=== PATIENT | female | born 1980 | race African-American/Black ===

== ENCOUNTER 2021-07-05 01:30 | Inpatient (IN) | payer MEDICAID ==
[~2021-07-05] VITALS: Ht 162.6 cm; Wt 74.4 kg
--- NOTE | 2021-07-05 01:52 | NUR ---
PATIENT BIBRA [address] C/O ABDOMINAL PAIN. PATIENT REQUESTED FOR WATER UPON TRIAGE. PATIENT IS A/O X 4, RR EVEN AND UNLABORED, NO SOB NOTED. PATIENT CONNECTED TO CARDIAC AND POX MONITOR. PT NOTED WITH BED BUGS.
[2021-07-05] MEDS ORDERED: HYDROMORPHONE INJ 2 MG/ML DISP.SYRIN IV ONE (02:00)
[2021-07-05] MEDS ORDERED: ONDANSETRON HCL/PF 4 MG/2 ML VIAL IVP ONE (02:00)
[2021-07-05] MEDS ORDERED: IV NS 0.9% 1,000 ML BAG IV ONE (02:00)
--- NOTE | 2021-07-05 02:25 | NUR ---
IV LINE ESTABLISHED AT RAC 20G, BLOOD DRAWN AND SENT TO LAB
--- NOTE | 2021-07-05 02:25 | NUR ---
IV LINE ESTABLISHED AT RAC 20G, BLOOD DRAWN AND SENT TO LAB
[2021-07-05] MEDS ORDERED: ONDANSETRON HCL/PF 4 MG/2 ML VIAL ONE (02:27)
[2021-07-05] MEDS ORDERED: HYDROMORPHONE 1 MG/1 ML DISP.SYRIN ONE (02:27)
--- NOTE | 2021-07-05 02:44 | NUR ---
ACREAGE REPORTER AT BEDSIDE
--- NOTE | 2021-07-05 02:44 | NUR ---
CABLE FERRY OPERATOR AT BEDSIDE
[2021-07-05 02:49] LABS: EOSINOPHILS % (AUTO) 2.8 % (0.0-6.0); MONOCYTES # (AUTO) 0.7 K/uL (0.1-1.30)
[2021-07-05 03:29] LABS: BASOPHILS # (AUTO) 0.1 K/uL (0.0-0.2); BASOPHILS % (AUTO) 0.8 % (0.0-2.0); LYMPHOCYTES # (AUTO) 2.4 K/uL (0.8-4.8); LYMPHOCYTES % (AUTO) 38.7 % (20.0-44.0); MEAN CORPUSCULAR HGB CONC 31 g/dl (31.0-36.0); MEAN CORPUSCULAR VOLUME 66 fL (82-100); MONOCYTES % (AUTO) 11.2 % (2.0-12.0); NEUTROPHILS # (AUTO) 2.9 K/uL (1.8-8.9); NEUTROPHILS % (AUTO) 46.5 % (43.0-81.0); PLATELET COUNT (AUTO) 454 K/uL (150-450); RED BLOOD CELL COUNT(AUTO) 2.61 MIL/uL (4.0-5.2); WHITE BLOOD COUNT (AUTO) 6.3 K/uL (4.3-11.0)
[2021-07-05 03:34] LABS: CALCIUM, SERUM 7.9 mg/dL (8.5-10.1); POTASSIUM 3.9 mmol/L (3.5-5.1)
[2021-07-05 03:36] LABS: HEMOGLOBIN 5.4 g/dL (11.5-14.8)
[2021-07-05 03:37] LABS: HEMATOCRIT 17 % (33-45)
[2021-07-05 03:47] LABS: ALBUMIN 2.5 g/dL (3.4-5.0); BILIRUBIN,DIRECT 0.1 mg/dL (0.0-0.2); BILIRUBIN,TOTAL 0.2 mg/dL (0.2-1.0); TOTAL PROTEIN, SERUM 6.2 g/dL (6.4-8.2)
[2021-07-05] MEDS ORDERED: LORAZEPAM INJ 2 MG/ML VIAL IV ONE (04:00)
[2021-07-05] MEDS ORDERED: LORAZEPAM INJ 2 MG/ML VIAL ONE (04:07)
--- NOTE | 2021-07-05 04:25 | NUR ---
PT SIGNED CONSENT FOR BLOOD TRANSFUSION, FORM PLACED ON CHART
--- NOTE | 2021-07-05 04:25 | NUR ---
PT SIGNED CONSENT FOR BLOOD TRANSFUSION, FORM PLACED ON CHART
--- NOTE | 2021-07-05 04:29 | NUR ---
covid antigen swab collected and sent to lab
--- NOTE | 2021-07-05 04:29 | NUR ---
covid antigen swab collected and sent to lab
--- NOTE | 2021-07-05 04:31 | NUR ---
[facility]SA SWAB DONE BY [facility] EMT AND SENT TO LAB
--- NOTE | 2021-07-05 04:31 | NUR ---
[facility]SA SWAB DONE BY [facility] EMT AND SENT TO LAB
[2021-07-05 04:59] LABS: OCCULT BLOOD STOOL POSITIVE (NEGATIVE)
[2021-07-05] MEDS ORDERED: ZOLPIDEM TARTRATE 5 MG TABLET PO PRN (07:00)
[2021-07-05] MEDS ORDERED: ONDANSETRON HCL/PF 4 MG/2 ML VIAL IVP PRN (07:00)
[2021-07-05] MEDS ORDERED: MAGNESIUM HYDROXIDE 30 ML UDC PO PRN (07:00)
[2021-07-05] MEDS ORDERED: PANTOPRAZOLE 40 MG VIAL IV SCH (07:00)
[2021-07-05] MEDS ORDERED: ACETAMINOPHEN 325 MG TABLET PO PRN (07:00)
[2021-07-05] MEDS ORDERED: MAG HYDROX/AL HYDROX/SIMETH 30 ML UDC PO PRN (07:00)
--- NOTE | 2021-07-05 08:00 | NUR ---
THE PATIENT IS RECEIVED IN ER BED #6. THE PATIENT IS SLEEPING. EASILY RESPONSIVE TO VERBAL STIMULI. RESPIRATION REGULAR AND UNLABORED. ATTACHED TO THE MONITOR.
--- NOTE | 2021-07-05 08:00 | NUR ---
THE PATIENT IS RECEIVED IN ER BED #6. THE PATIENT IS SLEEPING. EASILY RESPONSIVE TO VERBAL STIMULI. RESPIRATION REGULAR AND UNLABORED. ATTACHED TO THE MONITOR.
[2021-07-05] MEDS ORDERED: PANTOPRAZOLE 40 MG VIAL ONE (08:05)
[2021-07-05] MEDS: IV NS 0.9% 1,000 ML IV PRN (08:21)
--- NOTE | 2021-07-05 10:57 | NUR ---
NO INPATIENT BED AVAILABLE,WAITING ON D/C OR DOWNGRADE PER HOUSE MARY JO ALFREDO
--- NOTE | 2021-07-05 10:57 | NUR ---
NO INPATIENT BED AVAILABLE,WAITING ON D/C OR DOWNGRADE PER HOUSE MARY JO ALFREDO
--- NOTE | 2021-07-05 13:36 | NUR ---
BED WAS GIVEN 308-2
--- NOTE | 2021-07-05 13:36 | NUR ---
BED WAS GIVEN 308-2
--- NOTE | 2021-07-05 13:53 | NUR ---
REPORT GIVEN TO NURSE GRADY FOR DEVENDRA
--- NOTE | 2021-07-05 13:53 | NUR ---
REPORT GIVEN TO NURSE GRADY FOR DEVENDRA
--- NOTE | 2021-07-05 15:00 | NUR ---
TELE ADMISSION NOTE RECEIVED PT FROM ED. PT WITH STABLE VITALS. BP SLIGHTLY ELEVATED, DR. DE LA CRUZ MADE AWARE. ORIENTED PT TO UNIT, STAFF AND CALL LIGHT. ALERT AND ORIENTED X3, SLURRING OF WORDS. BREATHING IS EVEN AND UNLABORED. NO SOB. PT C/O ABDOMEN PAIN 10/05. IV ACCESS RAC#20 PATENT AND INTACT. BELONGINGS PLACED IN PLASTIC BAG. SAFETY MEASURES IN PLACE WITH BED LOW AND LOCKED, SIDE RAILS UP X 2. WILL CONTINUE TO MONITOR PATIENT THROUGHOUT SHIFT.
--- NOTE | 2021-07-05 15:08 | NUR ---
THE PATIENT IS TAKEN TO 308-2 IN STABLE CONDITION AND PER POLICY
--- NOTE | 2021-07-05 15:08 | NUR ---
THE PATIENT IS TAKEN TO 308-2 IN STABLE CONDITION AND PER POLICY
--- NOTE | 2021-07-05 15:30 | NUR ---
[facility] BLOOD TRANSFUSION STARTED INFUSION OF 1PRBC AT 1507. BP ELEVATED, DR. DE LA CRUZ MADE AWARE WITH NEW ORDER OF HYDRALAZINE 25MG PO ONCE; ORDERS READ BACK AND CARRIED OUT. WILL CONTINUE TO MONITOR FOR ADVERSE REACTIONS.
[2021-07-05 16:11] LABS: EOSINOPHILS % (MANUAL) 4 % (0-4); LYMPHOCYTES % (MANUAL) 34 % (16-48); MONOCYTES % (MANUAL) 9 % (0-11.0); NEUTROPHILS % (MANUAL) 53 (42-76)
[2021-07-05 16:47] VITALS: BP 160/95
[2021-07-05 17:02] VITALS: BP 171/100
[2021-07-05 17:47] VITALS: BP 170/110
[2021-07-05] MEDS ORDERED: hydrALAZINE HCL 25 MG TABLET PO ONE (18:00)
--- NOTE | 2021-07-05 18:17 | NUR ---
TELE ADMISSION NOTE RECEIVED PT FROM ED. PT WITH STABLE VITALS. BP SLIGHTLY ELEVATED, DR. DE LA CRUZ MADE AWARE. ORIENTED PT TO UNIT, STAFF AND CALL LIGHT. ALERT AND ORIENTED X3, SLURRING OF WORDS. BREATHING IS EVEN AND UNLABORED. NO SOB. PT C/O ABDOMEN PAIN 10/05. IV ACCESS RAC#20 PATENT AND INTACT. BELONGINGS PLACED IN PLASTIC BAG. SAFETY MEASURES IN PLACE WITH BED LOW AND LOCKED, SIDE RAILS UP X 2. WILL CONTINUE TO MONITOR PATIENT THROUGHOUT SHIFT. Addendum: 07/05/21 at 182 by ANT PACHECO RN ERROR, WRONG TIME Addendum: 07/05/21 at 182 by ANT PACHECO RN ERROR, NOT TELE
--- NOTE | 2021-07-05 18:42 | NUR ---
RN NOTES [facility] CURRENTLY TRANSFUSING AT 130MLS/ HR. NO S/SX OF DISTRESS OR REACTION. PT IS ALERT AND ORIENTED X 3. BP CURRENTLY AT 160/102. WILL CONTINUE TO MONITOR.
--- NOTE | 2021-07-05 19:25 | NUR ---
MS RN NOTE PT BP CONTINUES TO BE ELEVATED AT 171/111 DESPITE ADMINISTRATION OF HYDRALAZINE 25MG PO. INFORMED CHARGE NURSE AND MD WITH NEW ORDER FOR HYDRALAZINE 25MG IV ONCE; ORDERS READ BACK AND CARRIED OUT.
--- NOTE | 2021-07-05 19:25 | NUR ---
MS RN CLOSING NOTE BP SLIGHTLY STILL ELEVATED, DR. DE LA CRUZ MADE AWARE. BREATHING IS EVEN AND UNLABORED. NO SOB. IV ACCESS RAC#20 PATENT AND INTACT. SAFETY MEASURES IN PLACE WITH BED LOW AND LOCKED, SIDE RAILS UP X 2. WILL ENDORSE TO PULPWOOD CUTTER TO MONITOR PATIENT BP.
--- NOTE | 2021-07-05 19:25 | NUR ---
MS RN CLOSING NOTE BP SLIGHTLY STILL ELEVATED, DR. DE LA CRUZ MADE AWARE. BREATHING IS EVEN AND UNLABORED. NO SOB. IV ACCESS RAC#20 PATENT AND INTACT. SAFETY MEASURES IN PLACE WITH BED LOW AND LOCKED, SIDE RAILS UP X 2. WILL ENDORSE TO PRESS FEEDER TO MONITOR PATIENT BP.
[2021-07-05] MEDS ORDERED: hydrALAZINE HCL IV 20 MG VIAL IV ONE (19:30)
--- NOTE | 2021-07-05 19:30 | NUR ---
MS RN OPENING NOTE RECIEVED PT IN BED AWAKE. A/O X3. PT STABLE ON ROOM AIR. NO SOB OR S/S OF RESPIRATORY DISTRESS. IV ACCESS RAC 20 GAUGE RUNNING PRBC. PT STATED NO PAIN OR DISCOMFORT AT THIS TIME. SAFETY PRECAUTIONS MAINTAINED. BED IN LOWEST LOCKED POSITION, HOB ELEVATED, SIDE RAILS UP X2, AND CALL LIGHT AND TABLE WITHIN REACH. WILL CONTINUE WITH PLAN OF CARE.
[2021-07-05 20:00] VITALS: BP 178/118
[2021-07-05] MEDS ORDERED: hydrALAZINE HCL 50 MG TABLET PO ONE (20:30)
[2021-07-05 20:48] VITALS: BP 150/98
[2021-07-05] MEDS: PANTOPRAZOLE 40 MG VIAL IV SCH (21:55)
[2021-07-06] MEDS: IV NS 0.9% 1,000 ML IV PRN (04:31)
--- NOTE | 2021-07-06 06:43 | NUR ---
MS RN OPENING NOTE PT IN BED RESTING, EASILY AROUSABLE. A/O X3. PT STABLE ON ROOM AIR. NO SOB OR S/S OF RESPIRATORY DISTRESS. IV ACCESS RAC 20 GAUGE RUNNING NS @ 75 ML/HR. PT STATED NO PAIN OR DISCOMFORT AT THIS TIME. ALL NEEDS MET AT THIS TIME. SAFETY PRECAUTIONS MAINTAINED AT ALL TIMES. BED IN LOWEST LOCKED POSITION, HOB ELEVATED, SIDE RAILS UP X2, AND CALL LIGHT AND TABLE WITHIN REACH. WILL ENDORSE TO ONCOMING SHIFT FOR DEVENDRA.
--- NOTE | 2021-07-06 07:30 | NUR ---
MS RN OPENING NOTES RECEIVED PATIENT ON BED AWAKE AND A/O X3. ON ROOM AIR TOLERATING WELL. NO SOB NOTED. NOT IN DISTRESS. WITH NO COMPLAINTS OF PAIN OR DISCOMFORT AT THIS TIME. WITH IV ACCESS AT RIGHT AC G20 WITH NS AT 75ML/HR INFUSING WELL. SAFETY MEASURES IN PLACE. CALL LIGHT WITHIN REACH. BED ON LOWEST LOCKED POSITION, SIDE RAILS UP X2. WILL CONTINUE TO MONITOR.
[2021-07-06 08:00] VITALS: BP 167/88
--- NOTE | 2021-07-06 08:00 | NUR ---
MS RN NOTES PATIENT OBSERVED TO HAVE LICE (PARASITES) INFESTATION SEEN ON HER HEAD, BODY AND LINENS. PATIENT REFUSED TO DISCARD HER PERSONAL BLANKETS. REPORTED TO DR. DE LA CRUZ AND ORDERED LICE TREATMENT.
[2021-07-06 08:06] LABS: BASOPHILS # (AUTO) 0.1 K/uL (0.0-0.2); BASOPHILS % (AUTO) 1.1 % (0.0-2.0); EOSINOPHILS % (AUTO) 3.4 % (0.0-6.0); HEMATOCRIT 22 % (33-45); LYMPHOCYTES # (AUTO) 1.7 K/uL (0.8-4.8); LYMPHOCYTES % (AUTO) 28.5 % (20.0-44.0); MEAN CORPUSCULAR HGB CONC 32 g/dl (31.0-36.0); MEAN CORPUSCULAR VOLUME 72 fL (82-100); MONOCYTES # (AUTO) 0.7 K/uL (0.1-1.30); MONOCYTES % (AUTO) 12.1 % (2.0-12.0); NEUTROPHILS # (AUTO) 3.3 K/uL (1.8-8.9); NEUTROPHILS % (AUTO) 54.9 % (43.0-81.0); PLATELET COUNT (AUTO) 408 K/uL (150-450); RED BLOOD CELL COUNT(AUTO) 3.05 MIL/uL (4.0-5.2); WHITE BLOOD COUNT (AUTO) 6.1 K/uL (4.3-11.0)
[2021-07-06 08:27] LABS: CALCIUM, SERUM 8.6 mg/dL (8.5-10.1); CREATININE 0.7 mg/dL (0.6-1.3); MAGNESIUM 1.7 mg/dL (1.8-2.4); PHOSPHORUS 3.3 mg/dL (2.5-4.9); POTASSIUM 3.9 mmol/L (3.5-5.1)
[2021-07-06] MEDS: PANTOPRAZOLE 40 MG VIAL IV SCH ×2 (08:37→20:06)
[2021-07-06] MEDS ORDERED: IVERMECTIN 3 MG TABLET PO ONE (13:00)
[2021-07-06] MEDS ORDERED: PERMETHRIN 5% CRM 60 GM TUBE TP ONE (13:00)
[2021-07-06] MEDS: Magnesium 1GM/D5W 100ML PREMIX 100 ML IV SCH ×2 (13:10→15:21)
[2021-07-06 16:00] VITALS: BP 149/79
--- NOTE | 2021-07-06 18:34 | NUR ---
MS RN CLOSING NOTES PATIENT ON BED AWAKE AND A/O X3. ON ROOM AIR TOLERATING WELL. NO SOB NOTED. NOT IN DISTRESS. WITH NO COMPLAINTS OF PAIN OR DISCOMFORT AT THIS TIME. WITH IV ACCESS AT RIGHT AC G20 WITH NS AT 75ML/HR INFUSING WELL. SAFETY MEASURES IN PLACE. CALL LIGHT WITHIN REACH. BED ON LOWEST LOCKED POSITION, SIDE RAILS UP X2. WILL ENDORSE TO NEXT SHIFT.
--- NOTE | 2021-07-06 19:42 | NUR ---
MS RN OPENING NOTE RECEIVED PT IN BED AWAKE. A/O X3. PT STABLE ON ROOM AIR. NO SOB OR S/S OF RESPIRATORY DISTRESS. IV ACCESS RAC 20 GAUGE RUNNING NS @ 75 ML/HR. PT STATED NO PAIN OR DISCOMFORT AT THIS TIME. SAFETY PRECAUTIONS MAINTAINED. BED IN LOWEST LOCKED POSITION, HOB ELEVATED, SIDE RAILS UP X2, AND CALL LIGHT AND TABLE WITHIN REACH. WILL CONTINUE WITH PLAN OF CARE.
[2021-07-06 20:00] VITALS: BP 150/90
--- NOTE | 2021-07-07 00:03 | NUR ---
RN NOTE PT REFUSING IVF AT THIS TIME. EDUCATED PT ON RISKS AND BENEFITS. PT STILL REFUSED. CHARGE NURSE MADE AWARE. WILL CONTINUE TO MONITOR.
--- NOTE | 2021-07-07 00:03 | NUR ---
RN NOTE PT REFUSING IVF AT THIS TIME. EDUCATED PT ON RISKS AND BENEFITS. PT STILL REFUSED. CHARGE NURSE MADE AWARE. WILL CONTINUE TO MONITOR.
--- NOTE | 2021-07-07 06:32 | NUR ---
MS RN CLOSING NOTE PT IN BED AWAKE. A/O X3. PT STABLE ON ROOM AIR. NO SOB OR S/S OF RESPIRATORY DISTRESS. IV ACCESS RAC 20 GAUGE, STILL REFUSING IVF AT THIS TIME. PT STATED NO PAIN OR DISCOMFORT AT THIS TIME. KEPT NPO AFTER MIDNIGHT PER MD ORDER. CONTACT PRECAUTIONS OBSERVED AT ALL TIMES. ALL NEEDS MET AT THIS TIME. SAFETY PRECAUTIONS MAINTAINED AT ALL TIMES. BED IN LOWEST LOCKED POSITION, HOB ELEVATED, SIDE RAILS UP X2, AND CALL LIGHT AND TABLE WITHIN REACH. WILL ENDORSE TO ONCOMING NURSE FOR DEVENDRA.
--- NOTE | 2021-07-07 07:20 | NUR ---
MS RN OPENING NOTES RECEIVED PT ON BED, AWAKE, VERBALLY RESPONSIVE, NO SIGNS OF ACUTE DISTRESS NOTED. ON ROOM AIR, NO SOB, BREATHING EVEN AND UNLABORED. IV ACCESS ON RAC #20 G INTACT AND PATENT, REFUSES TO BE CONNECTED TO IVF. REMAINS ON NPO. NO C/O PAIN OR DISCOMFORT AT THIS TIME. ISOLATION PRECAUTIONS OBSERVED. SAFETY MEASURES IN PLACE. BED LOCKED AND ON LOWEST POSITION, SR UP X2, CALL LIGHT PLACED WITHIN EASY REACH. WILL CONTINUE TO MONITOR.
[2021-07-07 08:00] VITALS: BP 100/50
[2021-07-07] MEDS: PANTOPRAZOLE 40 MG VIAL IV SCH ×2 (08:13→21:16)
[2021-07-07 08:38] LABS: BASOPHILS # (AUTO) 0.1 K/uL (0.0-0.2); BASOPHILS % (AUTO) 1.2 % (0.0-2.0); EOSINOPHILS % (AUTO) 3.8 % (0.0-6.0); HEMATOCRIT 23 % (33-45); LYMPHOCYTES # (AUTO) 1.9 K/uL (0.8-4.8); LYMPHOCYTES % (AUTO) 32.5 % (20.0-44.0); MEAN CORPUSCULAR HGB CONC 31 g/dl (31.0-36.0); MEAN CORPUSCULAR VOLUME 72 fL (82-100); MONOCYTES # (AUTO) 0.8 K/uL (0.1-1.30); MONOCYTES % (AUTO) 12.6 % (2.0-12.0); NEUTROPHILS % (AUTO) 49.9 % (43.0-81.0); PLATELET COUNT (AUTO) 416 K/uL (150-450); RED BLOOD CELL COUNT(AUTO) 3.14 MIL/uL (4.0-5.2)
[2021-07-07 09:26] LABS: CALCIUM, SERUM 7.4 mg/dL (8.5-10.1); CREATININE 0.7 mg/dL (0.6-1.3); MAGNESIUM 1.9 mg/dL (1.8-2.4); PHOSPHORUS 3.4 mg/dL (2.5-4.9); POTASSIUM 3.7 mmol/L (3.5-5.1)
[2021-07-07] MEDS ORDERED: OLANZAPINE 5 MG TABLET PO PRN (09:30)
[2021-07-07] MEDS ORDERED: LORAZEPAM 1 MG TABLET PO PRN (09:30)
[2021-07-07 16:00] VITALS: BP 146/81
--- NOTE | 2021-07-07 18:22 | NUR ---
dr. Hernandez called and stated to keep pt npo from midnight, continue to monitor and inform him for any active bleeding.
--- NOTE | 2021-07-07 18:22 | NUR ---
dr. Hernandez called and stated to keep pt npo from midnight, continue to monitor and inform him for any active bleeding.
--- NOTE | 2021-07-07 18:58 | NUR ---
MS RN CLOSING NOTES PATIENT ON BED, AWAKE, VERBALLY RESPONSIVE, NO SIGNS OF ACUTE DISTRESS NOTED. REMAINS ON ROOM AIR, TOLERATING WELL, NO SOB, BREATHING EVEN AND UNLABORED. IV ACCESS ON RAC #20 G INTACT AND PATENT. NO C/O PAIN OR DISCOMFORT AT THIS TIME. ABLE TO TOLERATE CLEAR LIQUID DIET FOR LUNCH AND DINNER. WILL BE NPO AFTER MIDNIGHT PER DR. GUAJARDO'S INSTRUCTIONS. ISOLATION PRECAUTIONS OBSERVED. SAFETY MEASURES IN PLACE. BED LOCKED AND ON LOWEST POSITION, SR UP X2, CALL LIGHT PLACED WITHIN EASY REACH. WILL ENDORSE TO NEXT SHIFT.
--- NOTE | 2021-07-07 19:40 | NUR ---
MS RN OPENING NOTE RECEIVED PT IN BED AWAKE. A/O X3. PT STABLE ON ROOM AIR. NO SOB OR S/S OF RESPIRATORY DISTRESS. IV ACCESS RAC 20 GAUGE, PATIENT REFUSES IVF DESPITE OF RISKS AND BENEFITS EXPLANATIONS. PT STATED NO PAIN OR DISCOMFORT AT THIS TIME. SAFETY PRECAUTIONS MAINTAINED. BED IN LOWEST LOCKED POSITION, HOB ELEVATED, SIDE RAILS UP X2, AND CALL LIGHT AND TABLE WITHIN REACH. WILL CONTINUE WITH PLAN OF CARE.
[2021-07-07 19:55] VITALS: BP 150/77
[2021-07-07 20:00] VITALS: BP 150/77
--- NOTE | 2021-07-07 21:00 | NUR ---
Patient is adamantly refusing to be NPO despite multiple conversations about risks and benefits. and Dr. Hernandez not responding about when EGD will be for sure. Patient is also refusing IV fluids. Addendum: 07/09/21 at 0231 by AHSAN GUZMAN RN date error 07/08/21
--- NOTE | 2021-07-08 06:52 | NUR ---
MS RN CLOSING NOTES PATIENT RESTING IN BED AT THIS TIME. A/OX3. ABLE TO MAKE NEEDS KNOWN. ON ROOM AIR, TOLERATED WELL, BREATHING EVEN AND UNLABORED. IV ACCESS ON RAC G #20 INTACT/PATENT. PATIENT REFUSED TO HAVE IVF. ALL NEEDS AND CARE ATTENDED WELL. PATIENT IS ON ISOLATION FOR LICE. SAFETY PRECAUTIONS IN PLACED. BED LOCKED AND AT LOWEST POSITION. SIDE-RAILS UP X2 AND CALL LIGHT WITHIN REACH. WILL ENDORSE DEVENDRA TO ONCOMING NURSE.
[2021-07-08 08:00] VITALS: BP 153/72
[2021-07-08] MEDS: PANTOPRAZOLE 40 MG VIAL IV SCH ×3 (08:58→21:37)
[2021-07-08 09:13] LABS: CALCIUM, SERUM 7.8 mg/dL (8.5-10.1); CREATININE 0.8 mg/dL (0.6-1.3); MAGNESIUM 1.7 mg/dL (1.8-2.4); PHOSPHORUS 3.6 mg/dL (2.5-4.9); POTASSIUM 3.7 mmol/L (3.5-5.1)
--- NOTE | 2021-07-08 10:00 | NUR ---
m/s event producer: notes lab still pending. f/u made to lab, spoke to esdras and informed me that he is still running the cbc.
--- NOTE | 2021-07-08 10:00 | NUR ---
m/s front desk agent: notes lab still pending. f/u made to lab, spoke to esdras and informed me that he is still running the cbc.
[2021-07-08 10:04] LABS: BASOPHILS % (AUTO) 0.8 % (0.0-2.0); EOSINOPHILS % (AUTO) 4.1 % (0.0-6.0); HEMATOCRIT 22 % (33-45); LYMPHOCYTES % (AUTO) 33.6 % (20.0-44.0); MEAN CORPUSCULAR HGB CONC 31 g/dl (31.0-36.0); MEAN CORPUSCULAR VOLUME 72 fL (82-100); MONOCYTES # (AUTO) 0.8 K/uL (0.1-1.30); MONOCYTES % (AUTO) 13.1 % (2.0-12.0); NEUTROPHILS # (AUTO) 2.8 K/uL (1.8-8.9); NEUTROPHILS % (AUTO) 48.4 % (43.0-81.0); PLATELET COUNT (AUTO) 410 K/uL (150-450); RED BLOOD CELL COUNT(AUTO) 3.05 MIL/uL (4.0-5.2); WHITE BLOOD COUNT (AUTO) 5.8 K/uL (4.3-11.0)
[2021-07-08 10:07] LABS: HEMOGLOBIN 6.8 g/dL (11.5-14.8)
--- NOTE | 2021-07-08 10:08 | NUR ---
m/s medicare contact specialist: rocky dewitt ([employer] and blocker aid labor) called and informed me re: hgb/hct results: . left message to dr. gates (gi). no active bleeding noted since shift starts. instructed to call for assistance. will continue to monitor.
--- NOTE | 2021-07-08 10:08 | NUR ---
m/s snow groomer: rocky dewitt (slab lifting supervisor) called and informed me re: hgb/hct results: . left message to dr. gates (gi). no active bleeding noted since shift starts. instructed to call for assistance. will continue to monitor.
--- NOTE | 2021-07-08 10:20 | NUR ---
m/s strategy analyst: notes dr. gates called back with order to get consent for egd and keep pt npo. orders read back and carried out. updated plan of care to pt, but pt refusing the procedure and refused to signs the consents despite teaching provided, stating, "i don't want the procedure of any kind, talk to my apple picker, i just want my staff and leave. dr. gates made aware. will continue to monitor.
--- NOTE | 2021-07-08 10:20 | NUR ---
m/s cigar wrapper: notes dr. gates called back with order to get consent for egd and keep pt npo. orders read back and carried out. updated plan of care to pt, but pt refusing the procedure and refused to signs the consents despite teaching provided, stating, "i don't want the procedure of any kind, talk to my director of web marketing, i just want my staff and leave. dr. gates made aware. will continue to monitor.
--- NOTE | 2021-07-08 12:00 | NUR ---
m/s conference interpreter: md visit seen by dr. peters at this time and updated plan of care. pt only agrees for egd if she eats something now. pt threatening to leave if she can't eat. md aware. f/u made to dr. gates (gi), left message to md. will continue to monitor.
--- NOTE | 2021-07-08 12:00 | NUR ---
m/s sandblast or shotblast equipment tender: md visit seen by dr. peters at this time and updated plan of care. pt only agrees for egd if she eats something now. pt threatening to leave if she can't eat. md aware. f/u made to dr. gates (gi), left message to md. will continue to monitor.
--- NOTE | 2021-07-08 14:00 | NUR ---
m/s cloud automation tester: notes pt still verbalizing wanting to eat and threatening if not given food will leave here. dr. peters and dr. gates made aware with no new order.
--- NOTE | 2021-07-08 14:00 | NUR ---
m/s flarer: notes pt still verbalizing wanting to eat and threatening if not given food will leave here. dr. peters and dr. gates made aware with no new order.
--- NOTE | 2021-07-08 15:30 | NUR ---
m/s card player: notes pt agreed for egd and consents signed. dr. gates notified and made aware via secured text. dr. peters also made aware.
--- NOTE | 2021-07-08 15:30 | NUR ---
m/s lemon picker: notes pt agreed for egd and consents signed. dr. gates notified and made aware via secured text. dr. peters also made aware.
[2021-07-08 16:00] VITALS: BP 153/75
--- NOTE | 2021-07-08 16:55 | NUR ---
m/s salmon troll fisher: notes f/u made to blood bank, spoke to ron (tech) and informed that blood is not ready and will call floor when ready.
--- NOTE | 2021-07-08 16:55 | NUR ---
m/s sign carpenter: notes f/u made to blood bank, spoke to ron (tech) and informed that blood is not ready and will call floor when ready.
--- NOTE | 2021-07-08 17:10 | NUR ---
m/s machine fancy stitcher: notes ron (blood bank) called and informed me that there's a shortage of o positive blood from [facility] and won't be available 'til tomorrow. dr. peters notified and made aware. pt has no active bleeding noted since shift started. will continue to monitor.
--- NOTE | 2021-07-08 17:10 | NUR ---
m/s label fuser tender: notes ron (blood bank) called and informed me that there's a shortage of o positive blood from [facility] and won't be available 'til tomorrow. dr. peters notified and made aware. pt has no active bleeding noted since shift started. will continue to monitor.
--- NOTE | 2021-07-08 18:25 | NUR ---
m/s production counter: notes still no new order from dr. gates and dr. peters. pt remains npo. no active bleeding reported/noted. needs attended. isolation precaution maintained. will continue to monitor.
--- NOTE | 2021-07-08 18:25 | NUR ---
m/s metal pickling equipment operator: notes still no new order from dr. gates and dr. peters. pt remains npo. no active bleeding reported/noted. needs attended. isolation precaution maintained. will continue to monitor.
--- NOTE | 2021-07-08 19:20 | NUR ---
m/s sorting grapple operator: notes report given to annabel (rn) for continuity of care.
--- NOTE | 2021-07-08 19:20 | NUR ---
m/s environmental scientists: notes report given to annabel (rn) for continuity of care.
[2021-07-08 20:00] VITALS: BP 150/96
--- NOTE | 2021-07-08 21:00 | NUR ---
Patient is adamantly refusing to be NPO despite multiple conversations about risks and benefits. and Dr. Hernandez not responding about when EGD will be for sure. Patient is also refusing IV fluids.
--- NOTE | 2021-07-08 22:00 | NUR ---
Patient IV line occluded. Attempted multiple times to reinsert IV but patient was not tolerating and was moving too much as well as is a hard stick. Unable to give IV protonix. Will have charge weigher try again when patient is more cooperative.
--- NOTE | 2021-07-08 22:00 | NUR ---
Patient IV line occluded. Attempted multiple times to reinsert IV but patient was not tolerating and was moving too much as well as is a hard stick. Unable to give IV protonix. Will have storage battery charger try again when patient is more cooperative.
--- NOTE | 2021-07-09 04:08 | NUR ---
Patient reports having soft brown stool though did not wait for nurse to see despite given instructions. No obvious signs of bleeding found though.
--- NOTE | 2021-07-09 04:08 | NUR ---
Patient reports having soft brown stool though did not wait for nurse to see despite given instructions. No obvious signs of bleeding found though.
--- NOTE | 2021-07-09 06:21 | NUR ---
Patient continues to refuse to be NPO and will not let nurses try and attempt to insert an IV again, already attempted x5 but pt. continued to move and be uncooperative then yelling STOP. Patient is A&Ox3. Educated pt. that she will need a blood transfusion when blood becomes available. states ,"Well they can try again later but not now! I'm tired of it" then proceeded to use multiple profanities. Would not let HIM SPECIALISTS clean her or change out linens, cursing saying she is not dirty and doesn't want to shower at the hospital. Still refusing IVF. VS continue to be stable. Notified on-call, said because she is oriented that we cannot force pt. to do anything that she does not want to do. Will message Gholami and endorse to next nurse for attending to be aware. PATIENT OVERALL UNCOOPERATIVE WITH ALL FORMS OF CARE.
--- NOTE | 2021-07-09 06:21 | NUR ---
Patient continues to refuse to be NPO and will not let nurses try and attempt to insert an IV again, already attempted x5 but pt. continued to move and be uncooperative then yelling STOP. Patient is A&Ox3. Educated pt. that she will need a blood transfusion when blood becomes available. states ,"Well they can try again later but not now! I'm tired of it" then proceeded to use multiple profanities. Would not let POLYMER SPECIALIST clean her or change out linens, cursing saying she is not dirty and doesn't want to shower at the hospital. Still refusing IVF. VS continue to be stable. Notified on-call, said because she is oriented that we cannot force pt. to do anything that she does not want to do. Will message Gholami and endorse to next nurse for attending to be aware. PATIENT OVERALL UNCOOPERATIVE WITH ALL FORMS OF CARE.
--- NOTE | 2021-07-09 06:36 | NUR ---
Patient resting in bed. No signs of distress. Breathing and unlabored.
--- NOTE | 2021-07-09 06:36 | NUR ---
Patient resting in bed. No signs of distress. Breathing and unlabored.
--- NOTE | 2021-07-09 07:30 | NUR ---
MS RN OPENING NOTES RECEIVED PT ON BED, AWAKE, NO SIGNS OF ACUTE DISTRESS NOTED. ON ROOM AIR, NO SOB NOTED. PATIENT WITH NO IV ACCESS AT THIS TIME. WILL ENCOURAGE TO RE-INSERT LINE LATER. REMAINS ON NPO, BUT PER NIGHT NURSE PATIENT IN UNCOOPERATIVE AND REFUSING. ON CONTACT ISOLATION BUT PATIENT NOTED GOING OUT OF THE ROOM TO ASK FOR FOOD. RE-EDUCATED NEEDED. WILL CONTINUE TO MONITOR.
[2021-07-09 08:00] VITALS: BP 124/75
[2021-07-09] MEDS: PANTOPRAZOLE 40 MG VIAL IV SCH ×2 (09:00→21:58)
--- NOTE | 2021-07-09 09:00 | NUR ---
RN NOTES PROTONIX IV NOT ADMINISTERED, PT WITHOUT IV ACCESS, REFUSED IV TO BE REINSERTED. WILL TRY AGAIN LATER.
--- NOTE | 2021-07-09 09:00 | NUR ---
RN NOTES PROTONIX IV NOT ADMINISTERED, PT WITHOUT IV ACCESS, REFUSED IV TO BE REINSERTED. WILL TRY AGAIN LATER.
[2021-07-09 09:13] LABS: CALCIUM, SERUM 8.1 mg/dL (8.5-10.1); CREATININE 0.9 mg/dL (0.6-1.3); POTASSIUM 3.6 mmol/L (3.5-5.1)
[2021-07-09 09:30] LABS: HEMATOCRIT 22 % (33-45); MEAN CORPUSCULAR HGB CONC 31 g/dl (31.0-36.0); MEAN CORPUSCULAR VOLUME 72 fL (82-100); PLATELET COUNT (AUTO) 370 K/uL (150-450); RED BLOOD CELL COUNT(AUTO) 3.09 MIL/uL (4.0-5.2)
[2021-07-09 09:36] LABS: HEMOGLOBIN 6.9 g/dL (11.5-14.8)
[2021-07-09 16:00] VITALS: BP 124/75
--- NOTE | 2021-07-09 16:52 | NUR ---
RN NOTES CALLED LABS TO FOLLOW-UP IF BLOOD IS READY FOR PATIENT, PER [facility], THEY DON'T HAVE O+ BLOOD TYPE AT THIS MOMENT THERE'S A NATIONAL SHORTAGE OF IT. LAB WILL CALL US ONCE BLOOD IS AVAILABLE.
--- NOTE | 2021-07-09 17:00 | NUR ---
RN NOTES MIDLINE INSERTED BY PICC NURSE ON LEFT UPPER ARM, PROCEDURE TOLERATED WELL.
--- NOTE | 2021-07-09 17:00 | NUR ---
RN NOTES MIDLINE INSERTED BY PICC NURSE ON LEFT UPPER ARM, PROCEDURE TOLERATED WELL.
--- NOTE | 2021-07-09 18:56 | NUR ---
MS RN CLOSING NOTES PATIENT IN BED, AWAKE, ABLE TO MAKE NEEDS KNOWN, NO SIGNS OF ACUTE DISTRESS NOTED. ON ROOM AIR, NO SOB NOTED, BREATHING EVEN AND UNLABORED. WITH MIDLINE ON LEFT UPPER ARM INTACT AND PATENT. PATIENT REMAINS ON NPO. PATIENT NON-COMPLIANT, NOTED GOING OUT OF THE ROOM AND GETTING FOOD FROM THE FOOD CART. ISOLATION PRECAUTIONS OBSERVED BUT PT KEEPS ON GOING OUT OF THE ROOM DESPITE EXPLANATION OF IMPORTANCE OF MAINTAINING ISOLATION PREC. WILL ENDORSE TO NEXT SHIFT.
[2021-07-09 19:16] LABS: EOSINOPHILS % (MANUAL) 6 % (0-4); LYMPHOCYTES % (MANUAL) 30 % (16-48); MONOCYTES % (MANUAL) 6 % (0-11.0); NEUTROPHILS % (MANUAL) 58 (42-76)
[2021-07-09 20:00] VITALS: BP 153/78
--- NOTE | 2021-07-10 06:42 | NUR ---
MS RN NOTES AWAKE & RESPONSIVE. NOT IN ANY DISTRESS. NO SOB NOTED. DENIES ANY PAIN OR DISCOMFORT AT THIS TIME. WITH ML PATENT & INTACT. AM CARE DONE. MONITORED ACCORDINGLY. CALL LIGHT WITHIN REACH. BED IN LOWEST POSITION. SR UP X 2 FOR SAFETY. WILL ENDORSE TO NEXT SHIFT.
[2021-07-10 08:09] LABS: CALCIUM, SERUM 8.2 mg/dL (8.5-10.1); CREATININE 0.7 mg/dL (0.6-1.3); POTASSIUM 3.7 mmol/L (3.5-5.1)
[2021-07-10 08:11] LABS: BASOPHILS # (AUTO) 0.1 K/uL (0.0-0.2); BASOPHILS % (AUTO) 2.2 % (0.0-2.0); EOSINOPHILS % (AUTO) 3.7 % (0.0-6.0); LYMPHOCYTES # (AUTO) 1.9 K/uL (0.8-4.8); MEAN CORPUSCULAR HGB CONC 31 g/dl (31.0-36.0); MEAN CORPUSCULAR VOLUME 71 fL (82-100); MONOCYTES # (AUTO) 0.4 K/uL (0.1-1.30); MONOCYTES % (AUTO) 7.2 % (2.0-12.0); NEUTROPHILS # (AUTO) 2.8 K/uL (1.8-8.9); NEUTROPHILS % (AUTO) 51.9 % (43.0-81.0); PLATELET COUNT (AUTO) 379 K/uL (150-450); RED BLOOD CELL COUNT(AUTO) 2.79 MIL/uL (4.0-5.2); WHITE BLOOD COUNT (AUTO) 5.5 K/uL (4.3-11.0)
[2021-07-10 08:18] LABS: HEMOGLOBIN 6.2 g/dL (11.5-14.8)
[2021-07-10 08:19] LABS: HEMATOCRIT 20 % (33-45)
[2021-07-10 09:20] VITALS: BP 153/91
[2021-07-10] MEDS: PANTOPRAZOLE 40 MG VIAL IV SCH (09:22)
[2021-07-10] MEDS: IV NS 0.9% 1,000 ML IV PRN (11:15)
--- NOTE | 2021-07-10 11:56 | NUR ---
SS Consult: SS consult requested for homelessness. The pt. 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 BRIAN met with pt. bedside. The pt. appears alert & oriented x 3 and unkempt. The pt. has an elevated mood and circumstantial speech. Pt. is fixated on getting food. Pt. is currently NPO due to pending surgical procedure. Pt. is aware. SW redirected pt. and pt. remained irritable but compliant throughout interview. Pt. denies current SI/HI and denies hallucinations. Charge nurse notified SW that pt. is requesting to leave against medical advice. SW explored pt.s living situation & DC plan. Per the pt., he has been experiencing homelessness for some time. Pt. refused to disclose where she will go. Pt. stated "I have somewhere safe to go". Pt. did not provide address. BRIAN explored pt.s drug & ETOH use. Pt. states denies drug & alcohol use. BRIAN explored pt.s mental health Hx. Pt. denies any mental health Hx. Per pt. she is ambulatory & independent with all his ADLs. Plan: Pt. refused to signed homeless waiver & it was placed in the pt.s chart. BRIAN provided homeless resources to pt. and pt. refused them stating " I do not need a custodial. Pt. is agreeable to TAP card for transportation and BRIAN provided pt. with one. SW offered clothing and pt. stated se already has clothing. Homeless resources offered include: Year-round shelters: [facility] [address] [place], [place] [phone] ; [facility] [address] [place] [address]; [facility] [id number] [facility] [place] [facility] [address] Winter Shelters: SPA 2 | [facility] Richider: Taras [place] Address: Confidential (call for location ) Population Served: Coed # of Beds: 57 SPA 4 | [facility] Provider: Home at Last Address: [address] [place] [address] # of Beds: 49 Population Served: Coed SPA 6 | [facility] Provider: Home at Last Address: [address] [facility], [address] # of Beds: 49 Population Served: Coed Tyrone Kiefer [facility] Provider: Ghassan HUGGINS Address: [address] [facility] [address] # of Beds: 20 Population Served: Women ADÁN Facility Provider: Home at Last Address: [address] [facility] [address] # of Beds: 30 Population Served: Women SPA 8 | [facility] Provider: Ronald of [place] Address: [address] [facility] [address] # of Beds: 65 Population Served: Coed Hygiene: [place] [facility]: [address] [facility] ; [place] [facility] [address] [facility] ; [facility] 6900 [facility] . Food Resources: [place] [employer] at [facility]- 5700 [facility]; Meet Each Need with Dignity ([facility]) [address]90 [facility]; [facility] Food Pantry 4316 [facility]; [facility] 8584 [facility]. Mental Health resources provided: [facility] [address] [place], [place] [phone] ; [facility] [address] [facility] [facility] [address], [place] [address] ; Usha Springer [facility] Mental Health Urgent Care Center [address] [place] [address] ; [place] [facility] [address] [place], [place] [phone] Healthcare Clinics: [facility] 6551 [facility], [address] [place]. [place] ; [facility] [address] [facility] [address] [place] [address]; [facility] [address]236 [facility] [place] [phone] Counseling--Outpatient [facility] [address] [facility], [place] [address] (Specializes in in-depth psychotherapy for emotional distress: anxiety, depression, interpersonal conflicts, life transitions, childhood abuse) [facility] [address] [place] [address] (Assist with solving problem marital difficulties, separation & divorce, aging parents, & grief, chronic & terminal illness) [facility] [address] [place] [address] (Deal with loss & grief, anxiety, marital difficulties) Homebound/Mental Health Services [address] [facility] [address] [place] [address] (Provide in-home mental services to people who are incapable of leaving their homes) Organization for Needs of the Elderly Senior Service/Resource Center [address] [place] [address] [facility] 6514 [facility] [place] [address] PSYCHIATRIC OUTPATIENT SERVICES [facility] Partial Hospitalization and Intensive Outpatient Program (Managed Care and [place] Only)62837 [facility] CenterstacieSoutheast [facility] [phone] [facility] Partial Hospitalization and Outpatient Gfnwmjw31748 O[facility] [address] [place], [place] [phone] [facility] Tvo25792 [facility] [address] [place], [place] [phone] [facility] Partial Hospitalization and Outpatient Wayzgml86645 [place], [phone] Substance Abuse resources provided included: [facility] Substance Abuse Self-Helpline (SAS) ; CRI -HELP 87389 [facility]. [place] [address] ; [facility] [address] [facility] [address] ; [facility] [address] [place]. [place] [phone] ; [facility] 400 [facility] [address] ; [facility] 7458 Bart Winters [facility] [phone] ; [employer] 909 [facility] Blvd[facility] State [facility] [phone] ; [facility] Substance Abuse Helpline([facility] ; [facility] ; [facility] [place]; Ayse [facility] [place]; Cri-Help [place]; I-ADARP Inter Agency Drug Abuse Recovery Bart Winters; [facility]; [facility]; [facility]Ev[facility] [place]; [facility] [place]; Alcoholics Anonymous -SFV; Om-Sfuq-Wpbgheu ; Marijuana Anonymous -SFV; Narcotics Anonymous [email or web address];
--- NOTE | 2021-07-10 11:56 | NUR ---
SS Consult: SS consult requested for homelessness. The pt. 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 BRIAN met with pt. bedside. The pt. appears alert & oriented x 3 and unkempt. The pt. has an elevated mood and circumstantial speech. Pt. is fixated on getting food. Pt. is currently NPO due to pending surgical procedure. Pt. is aware. SW redirected pt. and pt. remained irritable but compliant throughout interview. Pt. denies current SI/HI and denies hallucinations. Charge nurse notified SW that pt. is requesting to leave against medical advice. SW explored pt.s living situation & DC plan. Per the pt., he has been experiencing homelessness for some time. Pt. refused to disclose where she will go. Pt. stated "I have somewhere safe to go". Pt. did not provide address. BRIAN explored pt.s drug & ETOH use. Pt. states denies drug & alcohol use. BRIAN explored pt.s mental health Hx. Pt. denies any mental health Hx. Per pt. she is ambulatory & independent with all his ADLs. Plan: Pt. refused to signed homeless waiver & it was placed in the pt.s chart. BRIAN provided homeless resources to pt. and pt. refused them stating " I do not need a longterm. Pt. is agreeable to TAP card for transportation and BRIAN provided pt. with one. SW offered clothing and pt. stated se already has clothing. Homeless resources offered include: Year-round shelters: [facility] [address] [place], [place] [phone] ; [facility] [address] [place] [address]; [facility] Slqihbk9817 [facility] [address] Winter Shelters: SPA 2 | [facility] Richider: Taras [place] Address: Confidential (call for location ) Population Served: Coed # of Beds: 57 SPA 4 | [facility] Provider: Home at Last Address: [address] [place] [address] # of Beds: 49 Population Served: Coed SPA 6 | [facility] Provider: Home at Last Address: [address] [facility], [address] # of Beds: 49 Population Served: Coed Tyrone Niles [facility]om[facility] Retirement Provider: Ghassan HUGGINS Address: [address] [facility] [address] # of Beds: 20 Population Served: Women ADÁN Facility Provider: Home at Last Address: [address] [facility] [address] # of Beds: 30 Population Served: Women SPA 8 | [facility] Provider: Ronald of Goldie Address: 9567 [facility] [address] # of Beds: 65 Population Served: Coed Hygiene: [place] [facility]: [address] [place] [facility] ; [place] [facility] [address] [facility] ; [facility] [facility] 6905 [facility] [place] [facility] . Food Resources: [place] [facility] Pant[facility] at [facility]- 5700 [facility]; Meet Each Need with Dignity ([facility]) 17055 [facility]; [facility] Food Pantry 4389 [facility]; [facility] 8545 [facility]. Mental Health resources provided: [facility] [address] [place], [place] [phone] ; [facility] Mental Health Center, Inc[facility] [address], [place] [address] ; Usha Springer [facility] Mental Health Urgent Care Center [address] [place] [address] ; [facility] [address] [place], [place] [phone] Healthcare Clinics: [facility] 6551 [facility], [address] [place]. [place] ; [facility] 6801 [facility] [address] [place] [address]; [address] [facility] [address] [facility] [place] [phone] Counseling--Outpatient [facility] 44[address] [facility], [place] [address] (Specializes in in-depth psychotherapy for emotional distress: anxiety, depression, interpersonal conflicts, life transitions, childhood abuse) [facility] [address] [place] [address] (Assist with solving problem marital difficulties, separation & divorce, aging parents, & grief, chronic & terminal illness) [facility] [address] [place] [address] (Deal with loss & grief, anxiety, marital difficulties) Homebound/Mental Health Services 8[address] Jennifer [facility] [address] [place] [address] (Provide in-home mental services to people who are incapable of leaving their homes) Organization for Needs of the Elderly Senior Service/Resource Center [address] [place] [address] [facility] 6514 [facility] [place] [address] PSYCHIATRIC OUTPATIENT SERVICES [facility] Partial Hospitalization and Intensive Outpatient Program (Managed Care and [place] Only)18717 [facility] CenterstacieAdventHealth Gordon [phone] [facility] Partial Hospitalization and Outpatient Spmxubi18048 LoveladyUNC Health [facility] [address] [place], [place] [phone] [facility] Mental Health [place] Lqg9[address] [facility] [address] [place], [place] [phone] [facility] Partial Hospitalization and Outpatient Qmdcaig39157 [place], [phone] Substance Abuse resources provided included: [facility] Substance Abuse Self-Helpline (SAS) ; CRI -HELP 89372 [facility]. [place] [address] ; [facility] 70559 [facility] [address] ; [facility] Rehabilitation Program [address] [place]. [place] [phone] ; [facility] 400 NCentral [facility] [address] ; [facility] 8744 Bart Winters [facility] [phone] ; Or[facility]ra 909 Justin BlvdWorcester State Hospital [phone] ; [facility] Substance Abuse Helpline([facility] ; [facility] ; [facility] [place]; Ayse [facility] [place]; Cri-Help [place]; I-ADARP Inter Agency Drug Abuse Recovery [place]; [facility] [place]; [facility] [place]; TarSt. [facility] [place]; [facility] [place]; Alcoholics Anonymous -SFV; Mb-Qoyn-Uofnazi ; Marijuana Anonymous -SFV; Narcotics Anonymous [email or web address];
--- NOTE | 2021-07-10 16:45 | NUR ---
MS/CLINICAL RESEARCH ANALYST NOTES PATIENT SIGNED AGAINST MEDICAL ADVICE FORM, PATIENT IS ALERT AND ORIENTED X3, ABLE TO MAKE NEEDS KNOWN. AMBULATORY. RN EXPLAINED RISK OF DOING AMA, PATIENT UNDERSTOOD. RN NOTIFIED MD. IV ACCESS ON LEFT UPPER ARM DISCONTINUED. RN PROVIDED PATIENT WITH CLOTHING AND SHOES, TAP CARD TO BE USED FOR PUBLIC TRANSPORTATION WAS ALSO PROVIDED. ESCORTED PATIENT TO THE LOBBY.
== END 2021-07-10 16:15 | disposition left against medical advice (07) | DRG 253 ==
LOC: ER 01:35 → TRANSITION 07:46 → TELE 13:40 → MED 15:17
PROVIDERS: ADMIT Student in an Organized Health Care Education/Training Program; ATTEND Internal Medicine
PROC: 30233N1 Transfusion of Nonautologous Red Blood Cells into Peripheral Vein, Percutaneous Approach (ICD-10-PCS; 2021-07-08)
PROC: 05HC33Z Insertion of Infusion Device into Left Basilic Vein, Percutaneous Approach (ICD-10-PCS; principal; 2021-07-09)
DX: K92.2 Gastrointestinal hemorrhage, unspecified (principal); E44.0 Moderate protein-calorie malnutrition; F29 Unspecified psychosis not due to a substance or known physiological condition; D75.839 Thrombocytosis, unspecified; D64.9 Anemia, unspecified; B85.4 Mixed pediculosis and phthiriasis; Z59.00 Homelessness unspecified; Z20.822 Contact with and (suspected) exposure to COVID-19; Z91.19 Patient's noncompliance with other medical treatment and regimen; Z53.29 Procedure and treatment not carried out because of patient's decision for other reasons; F41.9 Anxiety disorder, unspecified; F19.159 Other psychoactive substance abuse with psychoactive substance-induced psychotic disorder, unspecified; F12.929 Cannabis use, unspecified with intoxication, unspecified; F15.10 Other stimulant abuse, uncomplicated
CPT/HCPCS: 36415; 71045-TC; 74021; 80048-TC; 80061-TC; 80076-TC; 82272-TC; 83690-TC; 83735-TC; 84100-TC; 84703-TC; 85025-TC; 86850-TC; 87081-TC; C9113; C9803; G0378; J1170; J2060; J2405; J3475; J7030; J7050; P9016